=== PATIENT | male | born 1960 | race Caucasian/White ===

== ENCOUNTER 2017-06-28 21:12 | Emergency (ER) | payer OTHER ==
[~2017-06-28] VITALS: Ht 177.8 cm; Wt 100.0 kg
[2017-06-28 21:19] VITALS: TEMP 36.8; Ht 177.8 cm; Wt 100.0 kg
[2017-06-28] MEDS ORDERED: LIDOCAINE/EPINEPHRINE 1% 20 ML VIAL INFIL ONE (21:45)
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
[2017-06-28 22:50] LABS: CALCIUM 8.2 mg/dl (8.5-10.1); POTASSIUM 3.5 mmol/L (3.5-5.1)
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
--- NOTE | 2017-06-29 06:38 | DIAGNOSTIC IMAGING REPORT ---
CHEST LATERAL VIEW ONLY CLINICAL HISTORY: Abnormal chest x-ray. Bibasilar opacities. COMPARISON STUDY: 06/28/2017 FINDINGS: A lateral only view of the chest reveals no focal pulmonary consolidation. There are no pleural effusions.[ IMPRESSION: Unremarkable lateral view of the chest. Electronically signed by: Daron Crockett M.D. 06/29/2017 6:37 AM Dictated Date/Time: 06/29/2017 6:35 AM
[2017-06-29 08:12] VITALS: PULSE 72
[2017-06-29 09:46] VITALS: BP 167/90; O2SAT 94
== END 2017-06-29 09:47 | disposition home or self-care (01) ==
LOC: EDBD 21:12 → C.EDC 21:14 → C.EDB 06-29 09:47
DX: S01.81XA Laceration without foreign body of other part of head, initial encounter (principal); Y04.0XXA Assault by unarmed brawl or fight, initial encounter; Y92.89 Other specified places as the place of occurrence of the external cause; F10.129 Alcohol abuse with intoxication, unspecified; F17.210 Nicotine dependence, cigarettes, uncomplicated

== ENCOUNTER 2017-07-07 13:36 | Emergency (ER) | payer OTHER ==
[~2017-07-07] VITALS: Ht 177.8 cm; Wt 84.8 kg
[2017-07-07 13:40] VITALS: TEMP 37.1; Ht 177.8 cm; Wt 84.8 kg
--- NOTE | 2017-07-07 13:58 | EMERGENCY ROOM VISIT NOTE ---
History Report prepared by Ruthy: Padilla Lemus Under the Supervision of: Dr. Frederick Lemon M.D. First contact with patient: 13:37 Chief Complaint: MENTAL HEALTH EVALUATION Stated Complaint: MENTAL HEALTH History of Present Illness The patient is a 56 year old white male with a past medical history of depression who presents to the ED with a cc of worsening depression beginning a few months ago. Per psychiatric case management, the patient has been to rehab several times, and he is currently intoxicated. They report [facility]. The patient notes he has had thoughts to hurt himself, but he has not followed through with his thoughts. He states he will sometime see people coming at him, and he knows they are not there. He notes the last time he had them was two days ago. The patient reports they are strangers. He notes he takes Duloxetine daily, and has not missed a dose. The patient states his dose was recently increased from 40mg to 60mg. He reports denies homicidal ideations and recent falls. The patient notes he currently smokes and drank a 6pack of beer after waking up today. Source of History: patient Onset: a few months ago Quality: other (depression) Timing: worsening Note: Associated symptoms: visual hallucinations, thoughts to hurt himself Denies: homicidal ideations Review of Systems See HPI for pertinent positives and negatives. A total of ten systems were reviewed and were otherwise negative. Past Medical & Surgical Medical Problems: (1) No significant active problems Family History Patient reports no known family medical history. Social History Smoking Status: Current Every Day Smoker Alcohol Use: heavy Housing Status: lives with family Current/Historical Medications Scheduled Duloxetine Hcl (Cymbalta), 60 MG PO DAILY Lisinopril (Zestril), 5 MG PO DAILY Allergies Coded Allergies: No Known Allergies (Unverified , 11/24/12) Physical Exam Vital Signs Date Time Temp Pulse Resp B/P (MAP) Pulse Ox O2 Delivery O2 Flow Rate FiO2 07/07/17 17:11 64 17 132/79 96 Room Air 07/07/17 15:24 68 16 140/82 95 Room Air 07/07/17 13:40 37.1 75 18 157/89 98 Room Air Physical Exam GENERAL: Awake, alert, well-appearing, NAD. Clinically intoxicated. HENT: Normocephalic, atraumatic. Well healing scar above the left eyebrow. EYES: Normal conjunctiva. Sclera non-icteric. PERRL. No anisocoria. NECK: Supple. No nuchal rigidity. FROM. RESPIRATORY: CTAB, no rhonchi, wheezing, crackles CARDIAC: RRR, no MRG ABDOMEN: Soft, NTND, BS+ MSK: No chest wall TTP, no LE edema NEURO: GCS 15, CN 2-12 intact, moves all 4s on command SKIN: No rash or jaundice noted. PSYCHIATRIC: No SI, HI, or AVH. Medical Decision & Procedures Laboratory Results 07/07/17 14:29 Red Blood Count 4.38, Mean Corpuscular Volume 87.7, Mean Corpuscular Hemoglobin 30.4, Mean Corpuscular Hemoglobin Concent 34.6, Mean Platelet Volume 8.4, Neutrophils (%) (Auto) 53.1, Lymphocytes (%) (Auto) 33.6, Monocytes (%) (Auto) 6.4, Eosinophils (%) (Auto) 6.1, Basophils (%) (Auto) 0.4, Neutrophils # (Auto) 3.81, Lymphocytes # (Auto) 2.41, Monocytes # (Auto) 0.46, Eosinophils # (Auto) 0.44, Basophils # (Auto) 0.03 07/07/17 14:29 Test 07/07/17 14:21 07/07/17 14:29 Urine Color YELLOW Urine Appearance CLEAR (CLEAR) Urine pH 5.0 (4.5-7.5) Urine Specific [place] 1.008 (1.000-1.030) Urine Protein NEG (NEG) Urine Glucose (UA) NEG (NEG) Urine Ketones NEG (NEG) Urine Occult Blood NEG (NEG) Urine Nitrite NEG (NEG) Urine Bilirubin NEG (NEG) Urine Urobilinogen NEG (NEG) Urine Leukocyte Esterase NEG (NEG) Urine Opiates Screen NEG (NEG) Urine Methadone, Qualitative NEG (NEG) Urine Barbiturates NEG (NEG) Urine Phencyclidine (PCP) Level NEG (NEG) Ur Amphetamine/Methamphetamine NEG (NEG) MDMA (Ecstasy) Screen NEG (NEG) Urine Benzodiazepines Screen NEG (NEG) Urine Cocaine Metabolite NEG (NEG) Urine Marijuana (THC) NEG (NEG) White Blood Count 7.18 K/uL (4.8-10.8) Red Blood Count 4.38 M/uL (4.7-6.1) Hemoglobin 13.3 g/dL (14.0-18.0) Hematocrit 38.4 % (42-52) Mean Corpuscular Volume 87.7 fL (80-100) Mean Corpuscular Hemoglobin 30.4 pg (25-34) Mean Corpuscular Hemoglobin Concent 34.6 g/dl (32-36) Platelet Count 295 K/uL (130-400) Mean Platelet Volume 8.4 fL (7.4-10.4) Neutrophils (%) (Auto) 53.1 % Lymphocytes (%) (Auto) 33.6 % Monocytes (%) (Auto) 6.4 % Eosinophils (%) (Auto) 6.1 % Basophils (%) (Auto) 0.4 % Neutrophils # (Auto) 3.81 K/uL (1.4-6.5) Lymphocytes # (Auto) 2.41 K/uL (1.2-3.4) Monocytes # (Auto) 0.46 K/uL (0.11-0.59) Eosinophils # (Auto) 0.44 K/uL (0-0.5) Basophils # (Auto) 0.03 K/uL (0-0.2) RDW Standard Deviation 48.8 fL (36.4-46.3) RDW Coefficient of Variation 15.1 % (11.5-14.5) Immature Granulocyte % (Auto) 0.4 % Immature Granulocyte # (Auto) 0.03 K/uL (0.00-0.02) Anion Gap 6.0 mmol/L (3-11) Est Creatinine Clear Calc Drug Dose 96.8 ml/min Estimated GFR () 111.3 Estimated GFR (Non- 96.0 BUN/Creatinine Ratio 7.2 (10-20) Calcium Level 8.4 mg/dl (8.5-10.1) Total Bilirubin 0.2 mg/dl (0.2-1) Direct Bilirubin < 0.1 mg/dl (0-0.2) Aspartate Amino Transf (AST/SGOT) 20 U/L (15-37) Alanine Aminotransferase (ALT/SGPT) 29 U/L (12-78) Alkaline Phosphatase 103 U/L (45-117) Total Protein 7.9 gm/dl (6.4-8.2) Albumin 3.6 gm/dl (3.4-5.0) Thyroid Stimulating Hormone (TSH) 2.260 uIu/ml (0.300-4.500) Salicylates Level 3.9 mg/dl (2.8-20) Acetaminophen Level < 2 ug/ml (10-30) Ethyl Alcohol mg/dL 224.0 mg/dl (0-3) Laboratory results reviewed by me ED Course 1349: The patient was evaluated in room A07. A complete history and physical exam was performed. 1715: The patient was signed out to Dr. Ledbetter at the change of shift. Please refer to his note for further disposition. Medical Decision Nursing notes reviewed. Ancillary studies and prior records reviewed. The patient is a 56 year old white male with a past medical history of depression who presents to the ED with a cc of worsening depression beginning a few months ago. Differential diagnosis: Etiologies such as mood disorder, infection, hypoglycemia, electrolyte abnormalities, cardiac sources, intracerebral event, toxicologic, neurologic, as well as others were entertained. Patient was seen and evaluated the bedside. Patient had been having some worsening depression. Patient did have a recent change in his duloxetine prescription which was increased from 40 mg to 60 mg. Patient states he has had some visual hallucinations within the last week but none currently. Patient is currently intoxicated. Patient was follows commands and has no acute complaints. Patient did have some SI but without plan and denies HI, or AVH at this time. Patient's blood work is completed and the patient was medically clear with the exception of an elevated alcohol. Patient was deemed to be assessed around 5: 30 PM. I did discuss patient with the evening mental health specialist who is pending evaluation at 5:50 PM. Patient was signed out to the oncoming nighttime physician pending further evaluation treatment. Medication Reconcilliation Current Medication List: was personally reviewed by me Blood Pressure Screening Patient's blood pressure: Elevated blood pressure Blood pressure disposition: Referred to PCP Impression Primary Impression: Suicidal ideation Additional Impressions: Alcohol intoxication Encounter for smoking cessation counseling Scribe Attestation The scribe's documentation has been prepared under my direction and personally reviewed by me in its entirety. I confirm that the note above accurately reflects all work, treatment, procedures, and medical decision making performed by me. Departure Information Dispostion Still a Patient Referrals No Doctor, Assigned (PCP) Patient Instructions My [facility] Problem Qualifiers Additional Impressions: Alcohol intoxication Complication of substance-induced condition: uncomplicated Qualified Codes: F10.920 - Alcohol use, unspecified with intoxication, uncomplicated
[2017-07-07] MEDS ORDERED: LISI-729 PO (14:32)
[2017-07-07] MEDS ORDERED: DULO60CA44 PO (14:32)
[2017-07-07 14:44] LABS: BASO % 0.4 %; BASO ABS # 0.03 K/uL (0-0.2); EOS % 6.1 %; EOS ABS # 0.44 K/uL (0-0.5); HEMATOCRIT 38.4 % (42-52); HEMOGLOBIN 13.3 g/dL (14.0-18.0); IG# 0.03 K/uL (0.00-0.02); LYMPH % 33.6 %; LYMPH ABS # 2.41 K/uL (1.2-3.4); MEAN CELL VOLUME 87.7 fL (80-100); MEAN CORPUSCULAR HEMOGLOBIN 30.4 pg (25-34); MEAN CORPUSCULAR HGB CONC 34.6 g/dl (32-36); MEAN PLATELET VOLUME 8.4 fL (7.4-10.4); MONO % 6.4 %; MONO ABS # 0.46 K/uL (0.11-0.59); NEUT % 53.1 %; NEUT ABS # 3.81 K/uL (1.4-6.5); PLATELET COUNT 295 K/uL (130-400); RED CELL DISTRIBUTION WIDTH CV 15.1 % (11.5-14.5); RED CELL DISTRIBUTION WIDTH SD 48.8 fL (36.4-46.3); WHITE BLOOD COUNT 7.18 K/uL (4.8-10.8)
[2017-07-07 15:18] LABS: ALBUMIN 3.6 gm/dl (3.4-5.0); ALKALINE PHOSPHATASE 103 U/L (45-117); ALT/SGPT 29 U/L (12-78); AST/SGOT 20 U/L (15-37); BLOOD UREA NITROGEN 6 mg/dl (7-18); CALCIUM 8.4 mg/dl (8.5-10.1); CARBON DIOXIDE 26 mmol/L (21-32); CREATININE 0.88 mg/dl (0.60-1.40); GLUCOSE 98 mg/dl (70-99); POTASSIUM 3.8 mmol/L (3.5-5.1); SODIUM 140 mmol/L (136-145); TOTAL PROTEIN 7.9 gm/dl (6.4-8.2)
--- NOTE | 2017-07-07 19:04 | EMERGENCY ROOM VISIT NOTE ---
ED Visit Note Received patient in signout at change of shift. History and physical verified by me. Patient is willing to sign himself and is a 201. Discussed case with electronic prepress operator Doctor at [facility] who readily accepted the patient. Pt given a nicotine patch here in the ED. Current/Historical Medications Scheduled Duloxetine Hcl (Cymbalta), 60 MG PO DAILY Lisinopril (Zestril), 5 MG PO DAILY Allergies Coded Allergies: No Known Allergies (Unverified , 11/24/12) Vital Signs Date Time Temp Pulse Resp B/P (MAP) Pulse Ox O2 Delivery O2 Flow Rate FiO2 07/07/17 17:11 64 17 132/79 96 Room Air 07/07/17 15:24 68 16 140/82 95 Room Air 07/07/17 13:40 37.1 75 18 157/89 98 Room Air Laboratory Results 07/07/17 14:29 Red Blood Count 4.38, Mean Corpuscular Volume 87.7, Mean Corpuscular Hemoglobin 30.4, Mean Corpuscular Hemoglobin Concent 34.6, Mean Platelet Volume 8.4, Neutrophils (%) (Auto) 53.1, Lymphocytes (%) (Auto) 33.6, Monocytes (%) (Auto) 6.4, Eosinophils (%) (Auto) 6.1, Basophils (%) (Auto) 0.4, Neutrophils # (Auto) 3.81, Lymphocytes # (Auto) 2.41, Monocytes # (Auto) 0.46, Eosinophils # (Auto) 0.44, Basophils # (Auto) 0.03 07/07/17 14:29 Test 07/07/17 14:21 07/07/17 14:29 Urine Color YELLOW Urine Appearance CLEAR (CLEAR) Urine pH 5.0 (4.5-7.5) Urine Specific [place] 1.008 (1.000-1.030) Urine Protein NEG (NEG) Urine Glucose (UA) NEG (NEG) Urine Ketones NEG (NEG) Urine Occult Blood NEG (NEG) Urine Nitrite NEG (NEG) Urine Bilirubin NEG (NEG) Urine Urobilinogen NEG (NEG) Urine Leukocyte Esterase NEG (NEG) Urine Opiates Screen NEG (NEG) Urine Methadone, Qualitative NEG (NEG) Urine Barbiturates NEG (NEG) Urine Phencyclidine (PCP) Level NEG (NEG) Ur Amphetamine/Methamphetamine NEG (NEG) MDMA (Ecstasy) Screen NEG (NEG) Urine Benzodiazepines Screen NEG (NEG) Urine Cocaine Metabolite NEG (NEG) Urine Marijuana (THC) NEG (NEG) White Blood Count 7.18 K/uL (4.8-10.8) Red Blood Count 4.38 M/uL (4.7-6.1) Hemoglobin 13.3 g/dL (14.0-18.0) Hematocrit 38.4 % (42-52) Mean Corpuscular Volume 87.7 fL (80-100) Mean Corpuscular Hemoglobin 30.4 pg (25-34) Mean Corpuscular Hemoglobin Concent 34.6 g/dl (32-36) Platelet Count 295 K/uL (130-400) Mean Platelet Volume 8.4 fL (7.4-10.4) Neutrophils (%) (Auto) 53.1 % Lymphocytes (%) (Auto) 33.6 % Monocytes (%) (Auto) 6.4 % Eosinophils (%) (Auto) 6.1 % Basophils (%) (Auto) 0.4 % Neutrophils # (Auto) 3.81 K/uL (1.4-6.5) Lymphocytes # (Auto) 2.41 K/uL (1.2-3.4) Monocytes # (Auto) 0.46 K/uL (0.11-0.59) Eosinophils # (Auto) 0.44 K/uL (0-0.5) Basophils # (Auto) 0.03 K/uL (0-0.2) RDW Standard Deviation 48.8 fL (36.4-46.3) RDW Coefficient of Variation 15.1 % (11.5-14.5) Immature Granulocyte % (Auto) 0.4 % Immature Granulocyte # (Auto) 0.03 K/uL (0.00-0.02) Anion Gap 6.0 mmol/L (3-11) Est Creatinine Clear Calc Drug Dose 96.8 ml/min Estimated GFR () 111.3 Estimated GFR (Non- 96.0 BUN/Creatinine Ratio 7.2 (10-20) Calcium Level 8.4 mg/dl (8.5-10.1) Total Bilirubin 0.2 mg/dl (0.2-1) Direct Bilirubin < 0.1 mg/dl (0-0.2) Aspartate Amino Transf (AST/SGOT) 20 U/L (15-37) Alanine Aminotransferase (ALT/SGPT) 29 U/L (12-78) Alkaline Phosphatase 103 U/L (45-117) Total Protein 7.9 gm/dl (6.4-8.2) Albumin 3.6 gm/dl (3.4-5.0) Thyroid Stimulating Hormone (TSH) 2.260 uIu/ml (0.300-4.500) Salicylates Level 3.9 mg/dl (2.8-20) Acetaminophen Level < 2 ug/ml (10-30) Ethyl Alcohol mg/dL 224.0 mg/dl (0-3) Medications Administered Medications (Trade) Dose Ordered Sig/Dave Route Start Time Stop Time Status Last Admin Dose Admin Nicotine (Nicoderm Cq 21MG Patch) 1 patch NOW STAT TD 07/07/17 20:02 07/07/17 20:03 DC 07/07/17 20:02 1 PATCH Nicotine Polacrilex (Nicorette 2MG Gum) 1 piece PRN PRN MT 07/07/17 20:15 08/06/17 20:14 07/07/17 20:22 1 PIECE Departure Information Impression Primary Impression: Suicidal ideation Additional Impressions: Encounter for smoking cessation counseling Alcohol intoxication Dispostion Still a Patient Referrals No Doctor, Assigned (PCP) Patient Instructions My [facility] Health Problem Qualifiers
[2017-07-07] MEDS ORDERED: NICOTINE 21 MG/24 HR TDSY TD STA (20:02)
[2017-07-07] MEDS ORDERED: NICOTINE POLACRILEX 2 MG GUM MT PRN (20:15)
[2017-07-07 21:49] VITALS: BP 115/72; PULSE 86; O2SAT 97
== END 2017-07-07 21:50 ==
LOC: EDBD 13:36 → C.EDA 13:37
DX: R45.851 Suicidal ideations (principal); F10.920 Alcohol use, unspecified with intoxication, uncomplicated; Y90.8 Blood alcohol level of 240 mg/100 ml or more; R03.0 Elevated blood-pressure reading, without diagnosis of hypertension; F17.200 Nicotine dependence, unspecified, uncomplicated; Z79.899 Other long term (current) drug therapy